=== PATIENT | male | born 1970 | race Caucasian/White ===

== ENCOUNTER → 2022-05-17 15:11 | Outpatient (CLI) | payer OTHER, SELFPAY ==
--- NOTE | ~2022-05-17 | MR_ITS ---
EXAMINATION: MR hand RT wo con DATE: 05/17/2022 15:51 INDICATION: Right hand pain and swelling. TECHNIQUE: Magnetic resonance imaging (MRI) of the right hand was performed without intravenous contr ast. COMPARISON: None. FINDINGS: There is a skin marker dorsal to the second and third metacarpophalangeal joints. Bone alig nment is normal. No fracture. There is bone marrow edema in base of third proximal phalanx. The flex or and extensor tendons are normal. There is mild tenosynovitis of the third digit flexor tendons at the level of the neck of the metacarpal. There is soft tissue edema between the bases of the second a nd third proximal phalanges. IMPRESSION: 1. Edema-like marrow signal intensity in base of third proximal phalanx with edema of the adjacent so ft tissues. This finding may be secondary to trauma or nonspecific arthritis. Correlate with hand rad iographs. Reviewed, dictated and finalized at location A. ONARY SPECIALIST IMPRESSION: 1. Edema-like marrow signal intensity in base of third proximal phalanx with ed tommy of the adjacent soft tissues. This finding may be secondary to trauma or no nspecific arthritis. Correlate with hand radiographs.
== END ==
PROVIDERS: PCP Family Medicine Sports Medicine; Visit Provider Family Medicine Sports Medicine
DX: M79.641 Pain in right hand (principal); G89.29 Other chronic pain; S69.91XA Unspecified injury of right wrist, hand and finger(s), initial encounter
CPT/HCPCS: 73218

== ENCOUNTER → 2023-06-17 15:30 | Outpatient (CLI) | payer BC, SELFPAY ==
--- NOTE | ~2023-06-17 | MR_ITS ---
MRI of the right knee Clinical history: Medial meniscus tear Technique: Coronal proton density and proton density-weighted images, sagittal proton-density and T2 fat-sat images, and axial proton-density fat-saturated images were acquired. Findings: Anterior and posterior cruciate ligaments are intact. Medial collateral ligament and the la teral collateral ligament complex are intact. Popliteus tendon is intact. There is complex vertical/flap tear of the posterior horn of the medial meniscus. No lateral meniscal tear seen. There is mild contemplation the medial compartment. Articular cartilage in the lateral and patellofem oral compartments is well preserved. Extensor mechanism is intact. Small joint effusion present, with small, probable ruptured Waldrop's cys t. Impression: Complex vertical/flap tear of the posterior horn of the medial meniscus. Small joint effusion, with small, probable ruptured Waldrop's cyst. Mild chondromalacia medial compartment. Reviewed, dictated and finalized at [facility]. WORKER Impression: Complex vertical/flap tear of the posterior horn of the medial meniscus. Small joint effusion, with small, probable ruptured Waldrop's cyst. Mild chondromalacia medial compartment.
== END ==
PROVIDERS: PCP Family Medicine Sports Medicine; Visit Provider Orthopaedic Surgery
DX: S83.231A Complex tear of medial meniscus, current injury, right knee, initial encounter (principal); M25.461 Effusion, right knee; M71.21 Synovial cyst of popliteal space [Baker], right knee; M94.261 Chondromalacia, right knee
CPT/HCPCS: 73721

== ENCOUNTER 2024-04-12 11:58 | Outpatient (CLI) | payer BC, SELFPAY ==
--- NOTE | ~2024-04-12 | XR_ITS ---
EXAMINATION: XR fl inj shoulder LT - MR/CT DATE: 04/12/2024 12:46 INDICATION: Internal derangement of left shoulder. No prior dislocation or surgery. TECHNIQUE: A time-out was performed to verify the patient's name, date of , and procedure to b e performed. The procedure including the risks, benefits, and alternatives was discussed with the pat ient. Risks discussed included bleeding and infection. The patient understood the risks and agreed to proceed. The skin overlying the left glenohumeral joint was prepped and draped in usual sterile fash ion. Anesthetic was administered with 1% lidocaine subcutaneously. A 22 G needle was advanced under fluoroscopic guidance into the joint. Subsequently, injectate consisting of 12 mL of 1:200 Multihan ce, 1:4 1% lidocaine, and 1:4 Omnipaque 240 was instilled. The needle was removed and the entry site was cleaned and dressed. There were no immediate complications. Fluoroscopy exposure time was 0.1 m inutes. The total number of images was 3. FINDINGS: Real-time fluoroscopy demonstrates the needle and contrast in the left glenohumeral joint. IMPRESSION: 1. Successful left glenohumeral joint injection of contrast for subsequent MR arthrography. Reviewed, dictated and finalized at location [facility]. D OPERATOR IMPRESSION: 1. Successful left glenohumeral joint injection of contrast for subsequent MR a rthrography.
--- NOTE | ~2024-04-12 | MR_ITS ---
EXAMINATION: MR shoulder LT w con DATE: 04/12/2024 13:20 INDICATION: Internal derangement of the left shoulder TECHNIQUE: Magnetic resonance imaging (MRI) of the left shoulder was performed following intra-artic ular gadolinium contrast injection and without intravenous contrast. Details of the glenohumeral join t injection have been dictated separately. Sequences included axial T2-weighted FS FSE, axial T1-malcolm ghted FS FSE, coronal oblique T1-weighted FS FSE, coronal oblique T2-weighted FSE, sagittal T2-weight ed FS FSE, sagittal T1-weighted FSE, and ABER (abduction external rotation) T1-weighted FS FSE. COMPARISON: None. FINDINGS: Coracoacromial arch: The acromion undersurface is curved in morphology (type II). The coracoacromial ligament is normal. M ild acromioclavicular osteoarthritis with mild subarticular cystic change at both sides of the joint space. Rotator cuff: Mild supraspinatus and infraspinatus tendinopathy. There is increased fluid signal extending 8 mm AP along the middle facet footplate of the infraspinatus tendon. On the ABER images there shallow articu lar sided tearing with irregular articular surface to the tendon. There is deeper extension of contra st which communicates with a 1.6 x 1.2 x 0.4 cm intrasubstance collection of contrast in the distal t endon which is seen only on the ABER imaging. The teres minor tendon is normal. There is mild subscap ularis tendinopathy with mild partial tear along the superolateral aspect of the footplate of the les ser tuberosity with contrast extending additional 2 cm medially along a longitudinal split tear betwe en the portion of the tendon attached the lesser tuberosity and the more superficial portion of the t endon which remains attached the intact transverse humeral ligament. Normal rotator cuff muscle bulk and signal. Biceps tendon, glenoid labrum and glenohumeral cartilage: Long head of the biceps tendon appears normal but is only located within the intertubercular groove w ith no evident subluxation into the subscapularis tendon tear defect. There is a superior, anterior t o posterior tear of the glenoid labrum (SLAP tear) extending from the 10:00-12:00 position of the pos terior superior glenoid labrum. Is unclear where the cleft seen at the chondral labral junction at th e more anterior 1:30-12:00 position of the anterosuperior glenoid labrum represents a continuation of the tear or truncation with a normal superior labral sulcus and anterosuperior sublingual foramen. T here is deep chondral fissuring involving greater than 50% the cartilage thickness but without degene rative subchondral changes near the chondral labral junction at the 2:00-3:00 position of the anterio r glenoid. There is additional partial thickness chondral ulceration and deeper fissuring posterior s uperior margin of the glenoid which is best appreciated on the ABER imaging. Humeral cartilage appear s relatively preserved. Bones and other: Low signal intensity bone island at the base of the coracoid process. Otherwise normal marrow signal with no edema, fracture or abnormal marrow replacing process. No abnormal fluid in the subacromial/wilkinson bdeltoid bursa to suggest bursitis. IMPRESSION: 1. Mild glenohumeral osteoarthritis with SLAP tear of the posterior superior glenoid labrum with antione cent moderate grade cartilage along the posterior superior rim of the glenoid additional small region of moderate grade chondral malacia the anterior rim of the glenoid. 2. Mild supraspinatus and infraspinatus tendinopathy with partial thickness articular sided infraspin atus tendons tear along the middle facet footplate. The tear appears relatively shallow but with comm unication to a deeper intrasubstance split tear within the distal tendon. 3. Mild tendinopathy of the distal partial-thickness tear at the anterolateral margin of the lesser t uberosity footplate but without subluxation of the normal long head biceps tendon into the tear defec t. Reviewed, dictated and finalized at location [facility]. GRADER IMPRESSION: 1. Mild glenohumeral osteoarthritis with SLAP tear of the posterior superior gl enoid labrum with adjacent moderate grade cartilage along the posterior superio r rim of the glenoid additional small region of moderate grade chondral malacia the anterior rim of the glenoid. 2. Mild supraspinatus and infraspinatus tendinopathy with partial thickness art icular sided infraspinatus tendons tear along the middle facet footplate. The t ear appears relatively shallow but with communication to a deeper intrasubstanc e split tear within the distal tendon. 3. Mild tendinopathy of the distal partial-thickness tear at the anterolateral margin of the lesser tuberosity footplate but without subluxation of the normal long head biceps tendon into the tear defect.
== END 2024-04-12 11:59 | disposition home or self-care (01) ==
PROVIDERS: PCP Family Medicine Sports Medicine; Visit Provider Family Medicine Sports Medicine
DX: M24.812 Other specific joint derangements of left shoulder, not elsewhere classified (principal)
CPT/HCPCS: 23350; 73222; A9577; Q9967